=== PATIENT | female | born 1960 ===

== ENCOUNTER 2023-08-27 09:10 | Outpatient (REF) | payer OTHER, SELFPAY | END 2023-08-27 09:11 | disposition home or self-care (01) | LOC: HO.BBR 09:10 | PROVIDERS: Visit Provider Internal Medicine | DX: Z13.89 Encounter for screening for other disorder (principal) ==

== ENCOUNTER 2023-09-20 14:34 | Outpatient (REF) | payer OTHER, SELFPAY | END 2023-09-20 14:35 | disposition home or self-care (01) | LOC: HO.BBR 14:34 | PROVIDERS: Visit Provider Internal Medicine | DX: Z13.89 Encounter for screening for other disorder (principal) ==

== ENCOUNTER 2023-10-19 15:35 | Outpatient (REF) | payer OTHER, SELFPAY | END 2023-10-19 15:36 | disposition home or self-care (01) | LOC: HO.BBR 15:35 | PROVIDERS: Visit Provider Internal Medicine | DX: Z13.89 Encounter for screening for other disorder (principal) ==

== ENCOUNTER 2023-11-04 13:58 | Outpatient (REF) | payer OTHER, SELFPAY | END 2023-11-04 13:59 | disposition home or self-care (01) | LOC: HO.BBR 13:58 | PROVIDERS: Visit Provider Internal Medicine | DX: Z13.89 Encounter for screening for other disorder (principal) ==

== ENCOUNTER 2023-11-19 13:59 | Outpatient (REF) | payer OTHER, SELFPAY ==
[2023-11-19 14:50] LABS: MANUAL DIFF FLAG NO
[2023-11-19 14:55] LABS: Basophils Percent Auto 0.6 % (0-2); Eosinophils Absolute Auto 0.2 X10*3/uL (0.0-0.4); Eosinophils Percent Auto 3.2 % (0-4); Hematocrit 36.5 % (37.0-47.0); Hemoglobin 13.3 g/dl (12.0-16.0); Imm Gran Abs Auto 0.05 X10*3/uL (0.00-0.03); Imm Gran Pct Auto 0.8 % (0.0-0.4); Lymphocytes Absolute Auto 1.5 X10*3/uL (1.2-4.9); Lymphocytes Percent Auto 23.8 % (20-40); Mean Corpuscular HGB Conc 36.4 g/dl (31.0-35.0); Mean Corpuscular Hemoglobin 31.2 pg (27.0-33.0); Mean Corpuscular Volume 85.7 fL (80.0-98.0); Mean Platelet Volume 10.3 fL (9.4-12.3); Monocytes Absolute Auto 0.6 X10*3/uL (0.1-1.2); Monocytes Percent Auto 9.5 % (2-11); Neutrophils Absolute Auto 3.9 x10*3/uL (2.0-8.3); Neutrophils Percent Auto 62.1 % (45-73); Platelet Count 211 X10*3/uL (160-400); Red Blood Count 4.26 X10*6/uL (4.20-5.50); Red Cell Distribution Width 12.7 % (11.0-16.0); White Blood Count 6.2 X10*3/uL (4.8-10.8)
[2023-11-19 15:34] LABS: Alanine Aminotransferase 23 U/L (0-31); Albumin Level 3.9 g/dL (3.5-5.0); Alkaline Phosphatase 47 U/L (39-117); Anion Gap 11 (12-20); Aspartate Amino Transferase 23 U/L (5-31); Blood Urea Nitrogen 19 mg/dL (9-16); Calcium 9.6 mg/dL (8.4-10.2); Carbon Dioxide 29 mmol/L (22-29); Chloride 101 mmol/L (96-108); Estimated Glomerular Filt Rate 58; Glucose Random 197 mg/dL (60-115); Iron 79 mcg/dL (30-160); Percent Iron Saturation 34 % (15-50); Potassium 3.4 mmol/L (3.3-5.1); Sodium 138 mmol/L (135-145); Total Iron Binding Capacity 234 mcg/dL (228-428); Total Protein 6.7 g/dL (6.5-8.0); Unsaturated Iron Binding 155 ug/dL
[2023-11-19 15:46] LABS: Ferritin 54 ng/mL (10-250)
== END 2023-11-19 14:00 | disposition home or self-care (01) ==
LOC: HO.BBR 13:59
PROVIDERS: Visit Provider Internal Medicine
DX: E83.110 Hereditary hemochromatosis (principal)
CPT/HCPCS: 36415; 80053; 82728; 83540; 85025

== ENCOUNTER 2023-12-17 15:05 | Outpatient (REF) | payer OTHER, SELFPAY | END 2023-12-17 15:06 | disposition home or self-care (01) | LOC: HO.BBR 15:05 | PROVIDERS: Visit Provider Internal Medicine | DX: Z13.89 Encounter for screening for other disorder (principal) ==

== ENCOUNTER 2024-01-28 13:08 | Outpatient (REF) | payer OTHER, SELFPAY | END 2024-01-28 13:09 | disposition home or self-care (01) | LOC: HO.BBR 13:08 | PROVIDERS: Visit Provider Internal Medicine | DX: Z13.89 Encounter for screening for other disorder (principal) ==

== ENCOUNTER 2024-03-07 14:03 | Outpatient (REF) | payer OTHER, SELFPAY ==
--- OUTSIDE RECORDS SUMMARY | 2024-03-07 15:02 | XMS_ITS | Clinical Summary ---
Author Organization [facility] ity Address [address] [place] [address] Care Team Providers Care Office Machine Installer Name Role Phone Unavailable Primary Care Provider Unavailabl e Social History Tobacco Use Types Packs/Day Years Used Date Smoking Tobacco: Never Assessed Sex and Gender Information Value Date Recorded Sex Assigned at Not on file Gender Identity Not on file Sexual Orientation Not on file Plan of Treatment Health Maintenance Due Date Last Done Comments Breast Cancer Screening 1962 DTaP,Tdap,and Td Vaccines (1 - Tdap) 1981 Cervical Cancer Screening: P ap Smear 1983 Zoster Vaccines (1 of 2) 01/13/2012 Colorectal Cancer Screening: Colonoscopy 01/11/2022 Depression Screening 01/11/2022 HIV Screening 01/11/2022 Hepatitis C Screening 01/11/2022 Social Influencers of Health Screening 01/11/2022 COVID-19 Vaccine ( - 2023-2 5 season) 2023 Influenza Vaccine (#1) 2023 RSV Immunization Patients 60 + Years Old (1 - 1-dose 75+ series) 2037 HIB Vaccines Aged Out No longer eligi ble based on patient's age to complete this topic HPV Vaccines Aged Out No longer eligi ble based on patient's age to complete this topic Hepatitis A Vaccines Aged Out No long er eligible based on patient's age to complete this topic Hepatitis B Vaccines Aged Out No long er eligible based on patient's age to complete this topic IPV Vaccines Aged Out No longer eligi ble based on patient's age to complete this topic MMR Vaccines Aged Out No longer eligi ble based on patient's age to complete this topic Meningococcal ACWY Vaccine Aged Out N o longer eligible based on patient's age to complete this topic Pneumococcal Vaccine: Pediat rics (0 to 5 Years) and At-Risk Patients (6 to 64 Years) Aged Out No longer eligible b ased on patient's age to complete this topic RSV Immunization Patients Un allen 20 months Aged Out No longer eligible b ased on patient's age to complete this topic Varicella Vaccines Aged Out No longer eligible based on patient's age to complete this topic
== END 2024-03-07 14:04 | disposition home or self-care (01) ==
LOC: HO.BBR 14:03
PROVIDERS: Visit Provider Hospitalist
DX: Z13.89 Encounter for screening for other disorder (principal)

== ENCOUNTER 2024-05-04 15:02 | Outpatient (REF) | payer OTHER, SELFPAY | END 2024-05-04 15:03 | disposition home or self-care (01) | LOC: HO.BBR 15:02 | PROVIDERS: Visit Provider Internal Medicine | DX: Z13.89 Encounter for screening for other disorder (principal) ==

== ENCOUNTER 2024-07-04 15:15 | Outpatient (REF) | payer OTHER, SELFPAY ==
--- OUTSIDE RECORDS SUMMARY | 2024-07-04 15:18 | XMS_ITS | Clinical Summary ---
Author Organization [facility] Address [address] [place] [phone] Phone Care Team Providers Care Medical Writer Name Role Phone Mary Foss Primary Care Provider [phone] Encounters Date Type Department Care Team Description 06/28/2024 Lab Requisition [facility] - Main Lab [address] [facility] [place] [address] Ivett Chahal NP Calculus of kidney from Last 3 Months Social History Tobacco Use Types Packs/Day Years Used Date Smoking Tobacco: Never Assessed Comments Unknown Sex and Gender Information Value Date Recorded Sex Assigned at Not on file Legal Sex Female 2:27 AM EST Gender Identity Not on file Sexual Orientation Not on file Plan of Treatment Health Maintenance Due Date Last Done Comments Breast Cancer Screening 1962 DTaP,Tdap,and Td Vaccines (1 - Tdap) 1981 Cervical Cancer Screening: P ap Smear 1983 Pneumococcal Vaccine: 50+ Ye ars (1 of 1 - PCV) 01/13/2012 Zoster Vaccines (1 of 2) 01/13/2012 Colorectal Cancer Screening: Colonoscopy 01/11/2022 Depression Screening 01/11/2022 HIV Screening 01/11/2022 Hepatitis C Screening 01/11/2022 Social Influencers of Health Screening 01/11/2022 COVID-19 Vaccine ( - 2023-2 5 season) 2023 Influenza Vaccine (Season Ended) 2024 RSV Immunization Adult Patie nts (1 - 1-dose 75+ series) 2037 HIB [...] patient's age to complete this topic Meningococcal B Vaccine Aged Out No l onger eligible based on patient's age to complete [...] on patient's age to complete this topic Procedures Procedure Name Priority Date/Time Associated Diagnosis Comments BASIC METABOLIC PANEL Routine 06/28/2024 8:27 AM EDT Calculus of kidney from Last 3 Months Results * (ABNORMAL) Basic metabolic panel (06/28/2024 8:27 AM EDT) Sodium 136 133 - 145 mmol/L LAB CHEMISTRY METHOD 06/28/2024 12:45 PM [facility] Potassium 3.8 3.5 - 5.5 mmol/L LAB CHEMISTRY METHOD 06/28/2024 12:45 PM [facility] Chloride 99 96 - 110 mmol/L LAB CHEMISTRY METHOD 06/28/2024 12:45 PM [facility] CO2 28 21 - 32 mmol/L LAB CHEMISTRY METHOD 06/28/2024 12:45 PM [facility] Anion Gap 9 3 - 11 LAB CHEMISTRY METHOD 06/28/2024 12:45 PM [facility] Glucose 145(H) 70 - 100 mg/dL LAB CHEMISTRY METHOD 06/28/2024 12:45 PM [facility] BUN 17 5 - 25 mg/dL LAB CHEMISTRY METHOD 06/28/2024 12:[address] [facility] Creatinine 0.82 0.50 - 1.10 mg/dL LAB CHEMISTRY METHOD 06/28/2024 12:[address] [facility] eGFR 81 >=60 mL/min/1. 73m2 LAB CHEMISTRY METHOD 06/28/2024 12:[address] [facility] Comment:Calculation based on the Chronic Kidney Disease Epidemiology Collaboration (CKD-EPI) equation refit without adjustment for race. BUN/Creatinine Ratio 20.7 LAB CHEMISTRY METHOD 06/28/2024 12:[address] [facility] Calcium 8.7 8.5 - 10.5 mg/dL LAB CHEMISTRY METHOD 06/28/2024 12:[address] [facility] Blood Venous blood specimen / Unknown 06/28/2024 8:27 AM EDT 06/28/2024 11:44 AM EDT us Ivett Chahal COMPUTER SPECIALIST LAB BLOOD ORDERABLES Sylvie kidd Result [facility] [address] [place] [address], from Last 3 Months Insurance [facility] [id number] [facility] Care Teams Medical Writer Relationship Specialty Start Date End Date Mary Foss PA [address] [place] [address] PCP - General Internal Medicine 06/28/24
== END 2024-07-04 15:16 | disposition home or self-care (01) ==
LOC: HO.BBR 15:15
PROVIDERS: Visit Provider Internal Medicine
DX: Z13.89 Encounter for screening for other disorder (principal)